=== PATIENT | male | born 1970 | race Caucasian/White ===

== ENCOUNTER 2022-11-11 07:54 | Emergency (ER) | payer OTHER ==
[~2022-11-11] VITALS: Ht 185.4 cm; Wt 104.3 kg
[2022-11-11] MEDS ORDERED: HYDR1TAB94 PO (09:05)
[2022-11-11] MEDS ORDERED: DOC250 PO (09:05)
[2022-11-12] MEDS ORDERED: SULFAMETHOXAZO1 EAC1 PO (10:30)
== END 2022-11-11 09:35 | disposition home or self-care (01) ==
LOC: ER 07:54
DX: L02.31 Cutaneous abscess of buttock (principal); Z91.018 Allergy to other foods; Z79.899 Other long term (current) drug therapy
CPT/HCPCS: A9270

== ENCOUNTER 2022-11-12 09:42 | Emergency (ER) | payer OTHER ==
[~2022-11-12] VITALS: Ht 185.4 cm; Wt 104.3 kg
[~2022-11-12 09:42] MED LIST: DOC250 PO; HYDR1TAB94 PO
[2022-11-12] MEDS ORDERED: SULFAMETHOXAZO1 EAC1 PO (10:30)
== END 2022-11-12 10:31 | disposition home or self-care (01) ==
LOC: ER 09:42
DX: L02.31 Cutaneous abscess of buttock (principal); Z91.018 Allergy to other foods; Z79.899 Other long term (current) drug therapy
CPT/HCPCS: 99282

== ENCOUNTER → 2023-08-02 | Outpatient (CLI) | payer OTHER ==
[~2023-08-02] MED LIST changes: +SULFAMETHOXAZO1 EAC1 PO
[2023-08-04 13:55] LABS: Stool Occult Bld Immuno 1 Negative (NEGATIVE)
== END ==
LOC: LAB 04:00 → LAB SHORT 04:00
PROVIDERS: Physician Assistant
DX: Z12.11 Encounter for screening for malignant neoplasm of colon (principal)
CPT/HCPCS: G0328

== ENCOUNTER 2024-09-18 06:00 | Day surgery (SDC) | payer OTHER ==
[2024-09-18] VITALS (20 sets, daily range): BP systolic 105–159; BP diastolic 70–99
[~2024-09-18] VITALS: Ht 185.4 cm; Wt 107.2 kg
[~2024-09-18 06:00] MED LIST changes: +OMEP20ER PO
[2024-09-18] MEDS ORDERED: Lactated Ringer's 1,000 ML IV SCH (06:25)
--- NOTE | 2024-09-18 06:50 | NUR ---
Ambulatory in Day Surgery WITH STEADY GAIT. INDEPENDENT TO BATHROOM AND PRE OP BAY. History, Chart, Medications and Allergies reviewed before start of procedure. Patient confirms NPO status and agrees with scheduled surgery. ABD AREA CLIPPED WITH CLIPPERS BY THIS RN, SMALL ABRASION NOTED UNDER BELLY BUTTON AFTER CLIPPING. WILL INFORM DR ISLAS. BELONGINGS PLACED IN BAG INCLUDING WALLET AND CELL PHONE AND PLACED UNDER GURN. Pre-Op teaching done. Pt verbalizes understanding. Patient States Post-Procedure ride home has been arranged WITH FRIEND'S .
[2024-09-18] MEDS ORDERED: Sugammadex Sodium 200 MG/2ML SDV (100 MG/ML) ONE ×2 (06:59→09:24)
[2024-09-18] MEDS ORDERED: Lidocaine HCl 2% 20 ML MDV ONE (06:59)
[2024-09-18] MEDS ORDERED: Rocuronium Bromide 10 MG/ML 5ML Injection IV ONE ×3 (06:59→08:42)
[2024-09-18] MEDS ORDERED: Dexamethasone Sod Phos 10 MG/ML 1ML VIAL ONE (06:59)
[2024-09-18] MEDS ORDERED: propofoL 20 ML IV ONE (06:59)
[2024-09-18] MEDS ORDERED: Bupivacaine 0.5% HCl 5 MG/ML 30MLVIAL ONE (06:59)
[2024-09-18] MEDS ORDERED: Ondansetron HCl 2 MG / ML 2ML Vial ONE ×2 (06:59→09:58)
[2024-09-18] MEDS ORDERED: FentaNYL Citrate 50 MCG/ML 2 ML Injection ONE ×2 (06:59→09:48)
[2024-09-18] MEDS ORDERED: Midazolam HCl 1MG / ML 2ML Vial ONE (07:23)
[2024-09-18] MEDS ORDERED: Midazolam HCl 1MG / ML 2ML Vial IV ONE (07:25)
[2024-09-18] MEDS ORDERED: Ketorolac Tromethamine 30mg Vial ONE (07:57)
--- NOTE | 2024-09-18 08:10 | NUR ---
09/18/24 0810 Analilia Min NO INTRAOPERATIVE ANTIBIOTICS ORDERED
[2024-09-18] MEDS ORDERED: Metoclopramide HCl 5MG / ML 2ML Vial ONE (09:58)
[2024-09-18] MEDS ORDERED: HYDROmorphone HCl/Pf 1MG SYR ONE (10:05)
[2024-09-18] MEDS ORDERED: OxyCODONE 5 mg/Acetamin 325 mg TABLET PO PRN (10:20)
[2024-09-18] MEDS ORDERED: Droperidol 5 mg/2 ml Vial ONE (10:23)
--- NOTE | 2024-09-18 10:42 | NUR ---
PT TO DAY SURGERY STEP DOWN FROM PACU WITH HERNIA REPAIR; BEDSIDE REPOERT RECEIVED. PT IS AWAKE, ALERT AND ORIENTED; ABLE TO MOVE SELF IN BED. PT HAS ABD BINDER IN PLACE AND HAS 4 INCISION SITES THAT ARE C/D/I, UMBILLICAL INCISION HAS PRESURE GUAZE DRESSING ON. PT HAS BEEN NAUSEOUS IN THE PACU, BUT IS STARTING TO FEEL BETTER. REQUESTING CRACKERS.
--- NOTE | 2024-09-18 10:57 | NUR ---
PT EATING SALTINE CRACKERS, BUT STILL FEELS A LITTLE NAUSEATED.
--- NOTE | 2024-09-18 12:00 | NUR ---
Discharge instructions reviewed with patient. Patient verbalizes understanding. Copy given to patient to take home. Patient States Post-Procedure ride home has been arranged. Pt declines hospital ice pack.
--- NOTE | 2024-09-18 12:46 | NUR ---
Ambulatory in Day SurgeryPatient up to Ambulate independently. Gait steady. Discharged via wheelchair to private car for ride home. PT HAS ABD BINDER IN PLACE
== END 2024-09-18 12:46 | disposition home or self-care (01) ==
LOC: ORSCMMR 06:00 → PRE IP 06:00 → MEDS 06:00 → ORSCMMR 06:01 → EDSTATUS 07:30 → PRE IP 07:30 → MEDS 12:46 → ORSCMMR 12:46
PROVIDERS: Surgery
PROC: 8E0W4CZ Robotic Assisted Procedure of Trunk Region, Percutaneous Endoscopic Approach (ICD-10-PCS; 2024-09-18)
PROC: 0WUF4JZ Supplement Abdominal Wall with Synthetic Substitute, Percutaneous Endoscopic Approach (ICD-10-PCS; principal; 2024-09-18 07:30)
DX: K43.6 Other and unspecified ventral hernia with obstruction, without gangrene (principal); K21.9 Gastro-esophageal reflux disease without esophagitis; E66.9 Obesity, unspecified; Z68.31 Body mass index [BMI] 31.0-31.9, adult; Z87.891 Personal history of nicotine dependence; I10 Essential (primary) hypertension; Z79.899 Other long term (current) drug therapy
CPT/HCPCS: A9270; C1781; J1100; J1171; J1790; J1885; J2250; J2405; J2704; J2765; J3010; J7120